=== PATIENT | male | born 1955 | race Caucasian/White ===

== ENCOUNTER 2016-11-26 14:20 | Emergency (ER) | payer MEDICARE ==
--- NOTE | 2016-11-26 16:24 | CT ---
EXAM: CERVICAL SPINE CT WITHOUT CONTRAST: History Status post fall. Posttraumatic pain. COMPARISON: None. TECHNIQUE: A cervical spine CT is performed without contrast administration. Sagittal and coronal reformatted images are submitted for interpretation. FINDINGS: There is preservation of cervical spine vertebral body height. There is no fracture. There is scle rosis at C5, C6, and C7 which is felt to be on the basis of degenerative change. There is degenerat bouchra of posterior elements in the lower cervical spine and upper thoracic spine. There is 2.6 mm ant erolisthesis of T2 upon T3. There is appropriate alignment of the lateral masses of C1 and C2. Odontoid process is intact. Tyron ropriate alignment of the intraarticular facets. Visualized soft tissue neck structures are unremarkable. Upper mediastinum and lung apices are also unremarkable. Cervical spine vertebral body height is maintained. There is no cervical spine fracture. Disk-osteophyte complex at C5-C6 and C6-C7 result in at least mild central canal stenosis. There is mild to moderate foraminal narrowing. Evaluation is limited due to technique. IMPRESSION: 1. Degenerative changes of cervical spine. 2. No evidence of fracture. POS: [facility]
--- NOTE | 2016-11-26 16:25 | CT ---
CT OF THE THORACIC SPINE WITHOUT CONTRAST: COMPARISON: None. HISTORY: Fall with upper back and shoulder pain. TECHNIQUE: Multiple contiguous axial images were obtained in a CT of the thoracic spine without contrast. Sagi ttal and coronal reformats were performed. FINDINGS: The intervertebral disks are narrowed throughout the thoracic spine and moderate osteophytes are see n. The vertebral bodies demonstrate normal height without fracture or subluxation. No prevertebral soft tissue swelling is present. The prevertebral and paraspinal soft tissues are unremarkable. IMPRESSION: Moderate degenerative changes of the thoracic spine without acute osseous abnormality. POS: [facility]
--- NOTE | 2016-11-26 16:27 | CT ---
CT OF BRAIN PERFORMED WITHOUT CONTRAST ENHANCEMENT: HISTORY: Fall. FINDINGS: The ventricular and cisternal system is within normal limits. There are no signs of intracerebral h emorrhage or extraaxial fluid collections. The mastoid air cells and visualized sinuses are clear. IMPRESSION: No acute intracranial abnormality. POS: [facility]
--- NOTE | 2016-11-26 16:28 | RAD ---
FOUR VIEWS LEFT ELBOW: COMPARISON: None. HISTORY: Fall with left elbow pain. FINDINGS: Four views left elbow show no evidence of acute fracture or dislocation. Moderate posterior soft ti ssue swelling is seen. No degenerative changes are present. No elbow effusion is seen. IMPRESSION: Soft tissue swelling without underlying osseous abnormality. POS: [facility]
--- NOTE | 2016-11-26 16:35 | CT ---
EXAM: LUMBAR SPINE CT WITHOUT CONTRAST: HISTORY: Fall. Posttraumatic pain. Pain in L4-L5. COMPARISON: None. TECHNIQUE: A lumbar spine CT is performed without contrast. Reformatted images are submitted for interpretatio n. FINDINGS: Visualized solid organs are grossly unremarkable, with the exception of the left adrenal gland which has a hypodense nodule measuring 2.5 x 1.3 cm with an attenuation coefficient of 2.6 [place] uni ts compatible with a benign adenoma. No retroperitoneal mass, lymphadenopathy, or hematoma. There is atherosclerosis of the aorta. There is atherosclerosis in stent in the right external iliac amy ry. Mucosal thickening and diverticulosis in the visualized sigmoid colon. No evidence of presacra l fat stranding. Lumbar spine vertebral body height is maintained. There is no lumbar spine fracture. Vacuum disk phenomenon at L4-L5 and L5-S1. No spondylolisthesis or spondylolysis. Limited evaluation of the contents of the central spinal canal and neural foramen due to technique. T11-T12, T12-L1: No significant central canal stenosis or foraminal narrowing. L1-L2: No high-grade central canal stenosis or high-grade foraminal narrowing. L2-L3: Generalized disk bulge, with resultant mild central canal stenosis. Mild bilateral foramina l narrowing. L3-L4: Generalized disk bulge. Minimal central canal stenosis. Mild bilateral foraminal narrowing . L4-L5: Generalized disk bulge, ligamentum flavum thickening, and facet hypertrophy result in mild t o moderate central canal stenosis. Moderate right and left foraminal narrowing. L5-S1: Generalized disk bulge with a left subarticular component. There is mild stenosis of the th ecal sac. Minimal encroachment upon the right traversing S1 nerve root. There is mass effect and n ear-complete obscuration of the traversing left S1 nerve root secondary to disk material which has a component of inferior disk extrusion at the level of the left subarticular zone. Moderate right an d severe left foraminal narrowing. IMPRESSION: 1. Degenerative disease at L4-L5 and L5-S1 as detailed above. 2. No fracture. POS: [facility]
== END 2016-11-26 16:14 | disposition home or self-care (01) ==
LOC: SCSER 14:20
DX: S16.1XXA Strain of muscle, fascia and tendon at neck level, initial encounter (principal); S39.012A Strain of muscle, fascia and tendon of lower back, initial encounter; S29.012A Strain of muscle and tendon of back wall of thorax, initial encounter; S50.02XA Contusion of left elbow, initial encounter; M47.894 Other spondylosis, thoracic region; M47.897 Other spondylosis, lumbosacral region; E78.5 Hyperlipidemia, unspecified; I10 Essential (primary) hypertension; J45.909 Unspecified asthma, uncomplicated; I73.9 Peripheral vascular disease, unspecified; F17.210 Nicotine dependence, cigarettes, uncomplicated; Z79.891 Long term (current) use of opiate analgesic; Z79.899 Other long term (current) drug therapy; W01.0XXA Fall on same level from slipping, tripping and stumbling without subsequent striking against object, initial encounter
CPT/HCPCS: 70450; 72125; 72128; 72131